=== PATIENT | female | born 1945 | race Caucasian/White ===

== ENCOUNTER 2016-09-16 19:22 | Emergency (ER) | payer OTHER, MEDICAID ==
[~2016-09-16] VITALS: Ht 165.1 cm; Wt 81.6 kg
[~2016-09-16 19:22] MED LIST: ASPI325T47 PO; CLOP75TA41 PO; ENA10T PO; HYDR2TAB27 PO; ISO60SRT PO; LIDO5DIS21 TOP; METO-169 PO; NOR5T PO; PRAV20TA3 PO; RALO60TA PO
[2016-09-16] MEDS ORDERED: SODIUM CHLORIDE 0.9% 1,000 ML IVB ONE (19:57)
[2016-09-16 20:45] LABS: Basophils # (auto) 0 uL; Basophils % (auto) 0.1 % (0.0-2.0); Eosinophils # (auto) 0 uL; Hematocrit 44.1 % (36.0-46.0); Hemoglobin 14.7 g/dL (12.2-16.2); Lymphocytes # (auto) 0.8 uL; Lymphocytes % (auto) 5.7 % (10.0-50.0); Mean Corpuscular Hemoglobin 32.1 pg (28.0-32.0); Mean Corpuscular Hgb Conc. 33.3 g/dL (32.0-36.0); Mean Corpuscular Volume 96.4 fL (80.0-100.0); Mean Platelet Volume 9.7 fL (7.4-10.4); Monocytes # (auto) 0.8 uL; Monocytes % (auto) 5.8 % (0.0-12.0); Neutrophils # (auto) 12.1 uL; Neutrophils % (auto) 88.4 % (37.0-80.0); Platelet Count (auto) 278 10^3/uL (140-450); Red Cell Distribution Width 14.9 % (11.6-16.0); White Blood Cell 13.7 10^3/uL (4.4-10.8)
[2016-09-16 20:59] LABS: INR 0.96 (0.9-1.15); Partial Thromboplastin Time 21.2 sec (22.64-33.71); Prothrombin Time 10.4 sec (9.37-12.3)
[2016-09-16 21:06] LABS: Albumin 3.2 g/dL (3.4-5.0); Anion Gap 17 (5-15); Aspartate Aminotransferase 221 U/L (15-37); BUN/Creatinine Ratio 45.9; Blood Urea Nitrogen 34 mg/dL (7-18); Calcium 8.6 mg/dL (8.5-10.1); Carbon Dioxide 19 mmol/L (21-32); Chloride 105 mmol/L (98-107); GFR African American 100 mL/min; GFR Non-African American 82 mL/min; Glucose 67 mg/dL (74-106); Magnesium 2.1 mg/dL (1.6-2.6); Potassium 4.1 mmol/L (3.5-5.1); Sodium 141 mmol/L (136-145)
[2016-09-16 21:11] LABS: Alkaline Phosphatase 88 U/L (45-117); Bilirubin, Total 0.9 mg/dL (0.2-1.0); Total Protein 6.9 g/dL (6.4-8.2)
[2016-09-16 21:15] LABS: B-Type Natriuretic Peptide 29.75 pg/mL (0-100); Temperature: 22.9 C (20.0-25.0)
[2016-09-17] MEDS ORDERED: DEXTROSE (50%) 50ML SYRG IV ONE (00:15)
[2016-09-17 01:46] LABS: Urine Bilirubin Negative (Negative); Urine Blood TRACE /uL (Negative); Urine Color Yellow (Yellow); Urine Glucose Normal (Normal); Urine Mucus FEW (None Seen); Urine Nitrite Negative (Negative); Urine RBC 3 /hpf (0 - 4); Urine Squamous Epithelial Cell MANY /hpf (<5); Urine pH 5.5 (5.0-8.0)
[2016-09-17 01:53] LABS: Urine Ketone 4+ (Negative)
[2016-09-17] MEDS ORDERED: cefTRIAXone 1GM/50ML D5W 50 ML IV ONE (02:15)
[2016-09-17] MEDS ORDERED: SODIUM CHLORIDE 0.9% 1,000 ML IV ONE (05:00)
[2016-09-17 06:13] LABS: Albumin 2.8 g/dL (3.4-5.0); BUN/Creatinine Ratio 51.6; Calcium 7.9 mg/dL (8.5-10.1); Potassium 3.3 mmol/L (3.5-5.1)
[2016-09-17 06:25] VITALS: BP 126/62
[2016-09-17 06:25] LABS: Bilirubin, Total 0.7 mg/dL (0.2-1.0); Total Protein 5.9 g/dL (6.4-8.2)
[2016-09-17] MEDS ORDERED: POTASSIUM CHL 20 Meq TABLET PO ONE (06:30)
[2016-09-17] MEDS ORDERED: LEVOFLOXACIN 500 MG TAB PO ONE (06:45)
== END 2016-09-17 06:52 | disposition home or self-care (01) ==
LOC: ER 19:29
DX: R41.82 Altered mental status, unspecified (principal); T42.4X1A Poisoning by benzodiazepines, accidental (unintentional), initial encounter; N39.0 Urinary tract infection, site not specified; I25.810 Atherosclerosis of coronary artery bypass graft(s) without angina pectoris; I11.0 Hypertensive heart disease with heart failure; I50.9 Heart failure, unspecified; I25.2 Old myocardial infarction; Z79.82 Long term (current) use of aspirin; Z79.891 Long term (current) use of opiate analgesic; Z85.3 Personal history of malignant neoplasm of breast; Z88.0 Allergy status to penicillin
CPT/HCPCS: 36415; 36600; 70450; 71010; 80053; 80307; 80320; 81001; 82140; 82805; 82962; 83605; 83735; 83880; 84443; 84484; 85025; 85610; 85730; 87040; 87086; 93005; 96361; 96365; 96375; 99285; J0696; J7030; J7042

== ENCOUNTER 2021-09-11 14:14 | Inpatient (IN) | payer OTHER ==
[~2021-09-11] VITALS: Ht 167.6 cm; Wt 85.7 kg
[~2021-09-11 14:14] MED LIST changes: +ASPI-123 PO; -ASPI325T47 PO; -CLOP75TA41 PO; +CLOP75TA70 PO; -ENA10T PO; +ENAL10TA12 PO; +HYDR-4833 PO; -HYDR2TAB27 PO; +HYDR2TAB58 PO; -METO-169 PO; +METO-289 PO; -NOR5T PO; -RALO60TA PO; +RALO60TA13 PO
[2021-09-11] MEDS ORDERED: SODIUM CHLORIDE 0.9% 1,000 ML IV ONE ×2 (15:00→17:45)
[2021-09-11 15:44] LABS: Basophils # (auto) 0 10 ^3/uL (0-0.2); Basophils % (auto) 0.3 % (0.0-2.0); Eosinophils # (auto) 0 10 ^3/uL (0-0.8); Hematocrit 43.2 % (36.0-46.0); Lymphocytes # (auto) 0.6 10 ^3/uL (0.4-5.4); Lymphocytes % (auto) 7.9 % (10.0-50.0); Mean Corpuscular Hemoglobin 32.7 pg (28.0-32.0); Mean Corpuscular Hgb Conc. 34.7 g/dL (32.0-36.0); Mean Corpuscular Volume 94.2 fL (80.0-100.0); Monocytes # (auto) 0.8 10 ^3/uL (0-1.3); Neutrophils # (auto) 5.9 10 ^3/uL (1.6-8.6); Neutrophils % (auto) 80.8 % (37.0-80.0); Nucleated Red Blood Cells % 0.1 %; Red Blood Cells 4.59 10^6/uL (4.0-5.20); Red Cell Distribution Width 13.6 % (11.8-14.3); White Blood Cell 7.3 10^3/uL (4.4-10.8)
[2021-09-11 15:59] LABS: Alanine Aminotransferase 34 U/L (13-56); Albumin 3.5 g/dL (3.4-5.0); Anion Gap 6 (5-15); BUN/Creatinine Ratio 33.3; Blood Alcohol < 3.0 mg/dL (0-5); Blood Urea Nitrogen 24 mg/dL (7-18); Calcium 9.1 mg/dL (8.5-10.1); Carbon Dioxide 28 mmol/L (21-32); Chloride 106 mmol/L (98-107); GFR African American 102 mL/min; GFR Non-African American 84 mL/min; Glucose 93 mg/dL (74-106); Magnesium 2.5 mg/dL (1.6-2.6); Potassium 4.3 mmol/L (3.5-5.1); Sodium 140 mmol/L (136-145)
[2021-09-11 16:01] LABS: Acetaminophen < 2.0 ug/mL (10-30); Salicylate 4.8 mg/dL (2.8-20.0)
[2021-09-11 16:14] LABS: Alkaline Phosphatase 80 U/L (45-117); Aspartate Aminotransferase 79 U/L (15-37); Bilirubin, Total 0.5 mg/dL (0.2-1.0); Creatine Kinase IFCC 4205 U/L (26-192); Total Protein 6.8 g/dL (6.4-8.2)
[2021-09-11 16:23] LABS: CRP High Sensitivity 1.16 mg/dL (< 0.3)
[2021-09-11] MEDS ORDERED: NALOXONE HCL 0.4 MG/ML VIAL IV ONE (16:45)
[2021-09-11 17:06] LABS: Alcohol, Urine < 3.0 mg/dL (0-10); Amphetamine Screen, Urine NEGATIVE (NEGATIVE); Barbiturate Scree,Urine NEGATIVE (NEGATIVE); Cannabinoid Screen, Urine NEGATIVE (NEGATIVE); Cocaine Screen, Urine NEGATIVE (NEGATIVE); Opiate Scree,Urine POSITIVE (NEGATIVE); Phencyclidine Screen, Urine NEGATIVE (NEGATIVE)
[2021-09-11 17:10] LABS: Urine Amorphous Crystal FEW /hpf (None Seen); Urine Bacteria FEW /hpf (None Seen); Urine Blood TRACE /uL (Negative); Urine Specific Gravity 1.022 (1.001-1.035); Urine WBC <1 /hpf (0 - 5)
[2021-09-11 17:13] LABS: Benzodiazephine Screen, Urine POSITIVE (NEGATIVE)
[2021-09-11 17:17] LABS: Partial Thromboplastin Time 24.5 sec (23.6-33.0)
[2021-09-11] MEDS ORDERED: levoFLOXacin 500MG 100 ML IV ONE (18:15)
[2021-09-11] MEDS ORDERED: ASPirin 81 mg TAB PO ONE (21:15)
[2021-09-11] MEDS ORDERED: NITROGLYCERIN 0.4 MG SL TAB SL PRN (21:15)
[2021-09-11] MEDS ORDERED: hydrALAZINE HCL 20 MG/ML VL IV PRN (21:15)
[2021-09-11] MEDS ORDERED: ONDANSETRON HCL 4 MG/2 ML VIAL IV PRN (21:15)
[2021-09-11] MEDS ORDERED: ENOXAPARIN SOD 150 MG/1 ML SYRINGE SC ONE (21:15)
[2021-09-11] MEDS: SODIUM CHLORIDE 0.9% 1,000 ML IV SCH (21:15)
[2021-09-11] MEDS ORDERED: MORPHINE SULFATE INJECTION 2 MG/ML SYRG IV PRN (21:15)
[2021-09-11] MEDS: PANTOPRAZOLE 40 MG/10 ML VIAL INJ IV SCH (21:32)
[2021-09-11] MEDS: ATORVASTATIN 20 MG TAB PO SCH (22:00)
[2021-09-12 06:40] LABS: Basophils # (auto) 0 10 ^3/uL (0-0.2); Basophils % (auto) 0.3 % (0.0-2.0); Eosinophils # (auto) 0 10 ^3/uL (0-0.8); Hematocrit 40.2 % (36.0-46.0); Hemoglobin 13.9 g/dL (12.2-16.2); Lymphocytes # (auto) 0.7 10 ^3/uL (0.4-5.4); Lymphocytes % (auto) 6.6 % (10.0-50.0); Mean Corpuscular Hemoglobin 32.5 pg (28.0-32.0); Mean Corpuscular Hgb Conc. 34.6 g/dL (32.0-36.0); Mean Corpuscular Volume 93.9 fL (80.0-100.0); Monocytes # (auto) 0.9 10 ^3/uL (0-1.3); Monocytes % (auto) 7.8 % (0.0-12.0); Neutrophils # (auto) 9.5 10 ^3/uL (1.6-8.6); Neutrophils % (auto) 85.3 % (37.0-80.0); Nucleated Red Blood Cells % 0.1 %; Red Blood Cells 4.28 10^6/uL (4.0-5.20); White Blood Cell 11.2 10^3/uL (4.4-10.8)
[2021-09-12 06:57] LABS: Albumin 2.9 g/dL (3.4-5.0); Calcium 8.8 mg/dL (8.5-10.1); Potassium 4.3 mmol/L (3.5-5.1)
[2021-09-12 06:59] LABS: BUN/Creatinine Ratio 27.8
[2021-09-12 07:02] LABS: Bilirubin, Total 0.5 mg/dL (0.2-1.0); Total Protein 5.9 g/dL (6.4-8.2)
[2021-09-12 09:00] VITALS: BP 123/52
[2021-09-12] MEDS: ENOXAPARIN SOD 40 MG/0.4 ML SYRINGE SC SCH (10:00)
[2021-09-12] MEDS: PANTOPRAZOLE 40 MG/10 ML VIAL INJ IV SCH (10:30)
[2021-09-12] MEDS: ASPirin 81 mg TAB PO SCH (10:31)
[2021-09-12 13:00] VITALS: BP 116/59
[2021-09-12] MEDS ORDERED: IODIXANOL 320MG/ML 100ML BTL IV ONE (14:15)
[2021-09-12] MEDS ORDERED: LIDOCAINE 2%HCL (LOCAL ANESTH.) INJ 10ml MDV ONE ×2 (14:15→14:16)
[2021-09-12] MEDS: D5W/SOD CHL 0.45% 1,000 ML IV SCH ×2 (14:44→20:45)
[2021-09-12] MEDS ORDERED: fentaNYL CITRATE 100 MCG/2 ML VL ONE (16:31)
[2021-09-12] MEDS ORDERED: MIDAZOLAM HCL 2MG/2ML 2ml VIAL (1mg/ml) ONE (16:32)
[2021-09-12] MEDS ORDERED: ANGIOMAX 250 MG VIAL IV ONE (16:37)
[2021-09-12] MEDS ORDERED: SODIUM CHL 0.9% 0 ML ONE (16:37)
[2021-09-12 18:28] VITALS: BP 132/66
[2021-09-12] MEDS ORDERED: MORPHINE SULFATE INJECTION 2 MG/ML SYRG IV PRN (18:45)
[2021-09-12 22:00] VITALS: BP 126/62
[2021-09-12] MEDS: ATORVASTATIN 20 MG TAB PO SCH (22:00)
[2021-09-13 05:00] VITALS: BP 118/52
[2021-09-13] MEDS: SODIUM CHLORIDE 0.9% 1,000 ML IV SCH (05:37)
[2021-09-13 05:55] LABS: Basophils # (auto) 0 10 ^3/uL (0-0.2); Basophils % (auto) 0.3 % (0.0-2.0); Eosinophils # (auto) 0 10 ^3/uL (0-0.8); Eosinophils % (auto) 0.2 % (0.0-7.0); Hematocrit 39.1 % (36.0-46.0); Hemoglobin 13.6 g/dL (12.2-16.2); Lymphocytes # (auto) 1.5 10 ^3/uL (0.4-5.4); Lymphocytes % (auto) 17.2 % (10.0-50.0); Mean Corpuscular Hemoglobin 32.4 pg (28.0-32.0); Mean Corpuscular Hgb Conc. 34.7 g/dL (32.0-36.0); Mean Corpuscular Volume 93.4 fL (80.0-100.0); Monocytes # (auto) 0.7 10 ^3/uL (0-1.3); Monocytes % (auto) 7.9 % (0.0-12.0); Neutrophils # (auto) 6.4 10 ^3/uL (1.6-8.6); Neutrophils % (auto) 74.4 % (37.0-80.0); Nucleated Red Blood Cells % 0.1 %; Red Blood Cells 4.19 10^6/uL (4.0-5.20); White Blood Cell 8.6 10^3/uL (4.4-10.8)
[2021-09-13 06:17] LABS: Potassium 3.6 mmol/L (3.5-5.1)
[2021-09-13 06:23] LABS: Albumin 2.8 g/dL (3.4-5.0); BUN/Creatinine Ratio 24.7; Calcium 8.4 mg/dL (8.5-10.1)
[2021-09-13 06:26] LABS: Bilirubin, Total 0.7 mg/dL (0.2-1.0); Total Protein 5.6 g/dL (6.4-8.2)
[2021-09-13 09:00] VITALS: BP 116/73
[2021-09-13] MEDS: PANTOPRAZOLE 40 MG/10 ML VIAL INJ IV SCH (10:03)
[2021-09-13] MEDS: ASPirin 81 mg TAB PO SCH (10:03)
[2021-09-13] MEDS: ENOXAPARIN SOD 40 MG/0.4 ML SYRINGE SC SCH (10:04)
[2021-09-13] MEDS: D5W/SOD CHL 0.45% 1,000 ML IV SCH (10:05)
[2021-09-13 13:00] VITALS: BP 123/58
[2021-09-13 17:00] VITALS: BP 102/47
[2021-09-13] MEDS: ATORVASTATIN 20 MG TAB PO SCH (21:44)
[2021-09-13 22:00] VITALS: BP 121/76
[2021-09-14 05:00] VITALS: BP 126/96
[2021-09-14 06:41] LABS: Basophils # (auto) 0 10 ^3/uL (0-0.2); Basophils % (auto) 0.7 % (0.0-2.0); Eosinophils # (auto) 0.1 10 ^3/uL (0-0.8); Eosinophils % (auto) 0.9 % (0.0-7.0); Hematocrit 40.2 % (36.0-46.0); Hemoglobin 13.9 g/dL (12.2-16.2); Lymphocytes # (auto) 2.1 10 ^3/uL (0.4-5.4); Lymphocytes % (auto) 30.2 % (10.0-50.0); Mean Corpuscular Hgb Conc. 34.5 g/dL (32.0-36.0); Mean Corpuscular Volume 92.8 fL (80.0-100.0); Monocytes # (auto) 0.6 10 ^3/uL (0-1.3); Monocytes % (auto) 8.7 % (0.0-12.0); Neutrophils # (auto) 4.2 10 ^3/uL (1.6-8.6); Neutrophils % (auto) 59.5 % (37.0-80.0); Nucleated Red Blood Cells % 0.1 %; Red Blood Cells 4.33 10^6/uL (4.0-5.20); White Blood Cell 7.1 10^3/uL (4.4-10.8)
[2021-09-14 07:00] LABS: BUN/Creatinine Ratio 19.5; Calcium 8.6 mg/dL (8.5-10.1); Potassium 3.9 mmol/L (3.5-5.1)
[2021-09-14 08:41] VITALS: BP 111/43
[2021-09-14] MEDS: ASPirin 81 mg TAB PO SCH (09:38)
[2021-09-14] MEDS: PANTOPRAZOLE 40 MG/10 ML VIAL INJ IV SCH (09:38)
[2021-09-14] MEDS: ENOXAPARIN SOD 40 MG/0.4 ML SYRINGE SC SCH (09:39)
[2021-09-14 12:48] VITALS: BP 122/63
== END 2021-09-14 14:44 | disposition home or self-care (01) | DRG 280 ==
LOC: ER 14:14 → EDBD 14:14 → ER 20:23 → TELE-WESTW 20:23 → TELE 21:13 → TELE-WESTW 09-12 08:48
PROVIDERS: ADMIT Nurse Practitioner; ATTEND Internal Medicine Pulmonary Disease
PROC: 4A023N7 Measurement of Cardiac Sampling and Pressure, Left Heart, Percutaneous Approach (ICD-10-PCS; principal; 2021-09-12)
PROC: B211YZZ Fluoroscopy of Multiple Coronary Arteries using Other Contrast (ICD-10-PCS; 2021-09-12)
PROC: B215YZZ Fluoroscopy of Left Heart using Other Contrast (ICD-10-PCS; 2021-09-12)
PROC: B213YZZ Fluoroscopy of Multiple Coronary Artery Bypass Grafts using Other Contrast (ICD-10-PCS; 2021-09-12)
PROC: B218YZZ Fluoroscopy of Left Internal Mammary Bypass Graft using Other Contrast (ICD-10-PCS; 2021-09-12)
DX: I21.4 Non-ST elevation (NSTEMI) myocardial infarction (principal); G92.8 Other toxic encephalopathy; M62.82 Rhabdomyolysis; E44.0 Moderate protein-calorie malnutrition; E86.0 Dehydration; I25.10 Atherosclerotic heart disease of native coronary artery without angina pectoris; I10 Essential (primary) hypertension; F41.9 Anxiety disorder, unspecified; K21.9 Gastro-esophageal reflux disease without esophagitis; Z20.822 Contact with and (suspected) exposure to COVID-19; G89.29 Other chronic pain; T40.602A Poisoning by unspecified narcotics, intentional self-harm, initial encounter; T42.4X2A Poisoning by benzodiazepines, intentional self-harm, initial encounter; E66.01 Morbid (severe) obesity due to excess calories; E78.5 Hyperlipidemia, unspecified; H91.90 Unspecified hearing loss, unspecified ear; Z82.49 Family history of ischemic heart disease and other diseases of the circulatory system; Z90.12 Acquired absence of left breast and nipple; Z90.710 Acquired absence of both cervix and uterus; Z68.30 Body mass index [BMI] 30.0-30.9, adult; Z85.3 Personal history of malignant neoplasm of breast; Z90.10 Acquired absence of unspecified breast and nipple; Z95.1 Presence of aortocoronary bypass graft; Z98.61 Coronary angioplasty status; Y92.89 Other specified places as the place of occurrence of the external cause; Z88.1 Allergy status to other antibiotic agents; Z88.0 Allergy status to penicillin
CPT/HCPCS: 36415; 36600; 70450; 71045; 71250; 72125; 74176; 80048; 80053; 80307; 80320; 80329; 81001; 82140; 82550; 82553; 82805; 82962; 83036; 83605; 83735; 83880; 84484; 85025; 85610; 85730; 86141; 93005; 93306; 93971; 96361; 96365; 96375; 99152; 99291; C9113; G0378; J1956; J2001; J2250; Q9967